=== PATIENT | female | born 1945 | race Caucasian/White ===

== ENCOUNTER → 2017-11-01 10:47 | Outpatient (CLI) | payer OTHER, SELFPAY ==
--- NOTE | 2017-11-01 | DI.MG.S_ITS ---
BILATERAL DIGITAL SCREENING MAMMOGRAM 3D/2D WITH CAD: 11/01/2017 CLINICAL: Routine screening. Comparison is made to exams dated: 07/27/2015 mammogram, 03/13/2013 mammogram, and 05/24/2010 mammogram - [facility]. The tissue of both breasts is heterogeneously dense. This may lower the sensitivity of mammography. Current study was also evaluated with a Computer Aided Detection (CAD) system. No significant masses, calcifications, or other findings are seen in either breast. There has been no significant interval change. IMPRESSION: NEGATIVE There is no mammographic evidence of malignancy. A 1 year screening mammogram is recommended. NOTE: For mammograms, a report in lay terms will be sent to the patient. Approximately 15% of breast malignancies will not be visualized mammographically. In the management of a palpable breast mass, a negative mammogram must not discourage biopsy of a clinically suspicious lesion. Electronically Signed By: Sherri moise/hiwot:11/01/2017 11:49:27 letter sent: Normal Exam ACR BI-RADS Category 1: Negative [id number]
== END ==
PROVIDERS: Visit Provider Family Medicine
DX: Z12.31 Encounter for screening mammogram for malignant neoplasm of breast (principal)
CPT/HCPCS: 77063; 77067

== ENCOUNTER → 2021-04-27 12:01 | Outpatient (CLI) | payer MEDICARE, BC, SELFPAY ==
--- NOTE | 2021-04-27 | DI.RAD.S_ITS ---
PROCEDURE: FL BARIUM SWALLOW W SPEECH INDICATIONS: Other dysphagia COMPARISON: None. TECHNIQUE: Examination was conducted in conjunction with speech pathology per standard protocol. In the lateral projection, filming was performed of the patient swallowing. AP projection filming may also be performed with patient swallowing. COMPARISON: FINDINGS: Function: The oral preparatory phase appears normal, with proper containment. The subsequent oral propulsive phase, pharyngeal phase, and esophageal phase of swallowing also appear normal with all proffered substances. No laryngotracheal penetration or aspiration. Mild bilateral vallecular pooling, left greater than right which was not always cleared with repeat swallows. There is delayed passage of 13 millimeter barium tab with tablet has obtaining at the right vallecula. With repeat swallows common was cleared from the right vallecula and readily passed to the stomach. Morphology: No cricopharyngeal bar is identified. No cervical esophageal webs. No Zenker's diverticulum. No strictures. IMPRESSION: 1. Mild bilateral vallecular pooling. 2. Delayed passage of barium tablet passed right vallecula. Tablet was passed with with repeat swallows. Dictated by: Dannielle Guillen MD, PhD on 04/27/2021 at 16:08 Approved by: Dannielle Guillen MD, PhD on 04/27/2021 at 16:10
--- NOTE | 2021-04-27 17:30 | ST.SWALLOW ---
Visit Care Team Role Provider Type FRANCISCA Amaya Family Provider Non-Staff Primary Care Provider Specialty: Family Practice Address: [address] [place] [address], [id number] Email: Patrick Blanco MD Attending Provider Physician Referring Provider Specialty: Ear, Nose, Throat Address: [address] [place] [address], [id number] Email: [email or web address] Modified Barium Swallow Study [email or web address] Modified Barium Swallow Study Start: 04/27/21 15:50 Freq: Status: Active Protocol: Document 04/27/21 15:50 TAMARA (Rec: 04/27/21 17:08 TAMARA [id number]) Modified Barium Swallow Study Total Time Visit Start Time 13:30 Visit Stop Time 14:10 Total Visit Minutes [address] Patrick Blanco Reason for Referral Dysphagia Setting Setting Outpatient Care Patient Information Identification Type Name,ID Card Patient History The pt is a 75-yr-old female with complains of choking and gagging with oral intake. This was happening with some frequency for a while until, around February, she experienced what appears to have been a laryngospasm (as identified by Dr. Blanco, per pt's report). The pt was at a deli in her community when she started to eat a salmon croquet and found that she could not breathe. Bystanders performed Heimlich with no results and called 911. While waiting for sample supervisor' arrival, the pt started coughing and the issue resolved without medical care. Since then, the pt has been more careful with swallowing, and choking, gagging and sticking sensation symptoms have reduced but not resolved. The pt did not identify any particular food or liquid but did state that pills are frequently difficult to swallow, as they stick in her throat. She reported increased hoarseness of voice when these episodes occur. Subjective Observations The pt arrived on time and provided case history. MBS procedure and goals were explained to her, and she was in agreement to proceed. Patient Positioning Position View Lat-A/P Imaging Lateral View Textures Administered Trials Presented Thin Liquid via Spoon,Thin Liquid via Cup,Springfield Liquid via Spoon,Springfield Liquid via Cup,Honey Liquid via Spoon, Dysphagia Blenderized Textures ,Regular Textures Oral Phase Source: MBSIMP (TM) (C) Bolus Specific Scoring Grid Lip Closure No Impairment (WNL) Tongue Control During Bolus Hold No Impairment (WNL) Bolus Prep/Mastication No Impairment (WNL) Bolus Transport/Lingual Motion No Impairment (WNL) A/P Lingual Propulsion Delay No Oral Residue Minimal Impairment Residue Clearing No Impairment (WNL) Nasal Regurgitation No Additional Oral Phase Observations Oral peripheral exam: Mild lingual deviation to left side . Mildly reduced labial strength allowed for leakage of air while shifting air from cheek to cheek. Otherwise features are symmetrical and WNL of strength, coordination, and ROM. Pt has natural dentition in adequate condition for age. Prominent torus mandibularis x2 were observed. Pharyngeal Phase Source: MBSIMP (TM) (C) Bolus Specific Scoring Grid Delayed Initiation of Pharyngeal Swallow Yes: Occ mild, during consec sips & with oral residue Soft Palate Elevation No Impairment (WNL) Tongue Base Strength/Range of Motion Mild Impairment Residue Along the Tongue Base Yes Clearance of Residue Along Tongue Base No Impairment (WNL) Laryngeal Elevation No Impairment (WNL) Anterior Hyoid Movement Moderate Impairment Epiglottic Range of Motion Mild Impairment Vallecular Residue Yes: Greater on left side Clearance of Vallecular Residue WFL Laryngeal Vestibular Closure No Impairment (WNL) Pharyngeal Stripping Wave Moderate Impairment Pharyngeal Contraction No Impairment (WNL) Posterior Pharyngeal Wall Residue No Upper Esophageal Sphincter Opening No Impairment (WNL) Residue in the Pyriform Sinuses Yes: Trace with paste and cookie Clearance of Residue in the Pyriform No Impairment (WNL) Sinuses Esophageal Clearance Upright Position No Impairment (WNL) Pharyngoesophageal Backflow Observed No Additional Pharyngeal Phase Observations No laryngeal penetration or tracheal aspiration was observed during the trial. At one point, the pt c/o sticking sensation at the base of her throat despite the pharynx being clear. Hyolaryngeal elevation was WNL, but minimal anterior movement was observed. This likely contributes to the inconsistent epiglottic inversion that was noted and resulted in moderate consistent vallecular residue, greater on left side than right. Residue cleared with liquid wash, sometimes requiring multiple swallows. A/P View Textures Administered Trials Presented [place] Liquid via Cup, Dysphagia Blenderized Textures ,Barium Tablet A/P View Observations Pharyngeal Contraction No Impairment (WNL) Vocal Fold Function Good Residue Observed Valleculae Left Esophageal Function No Impairment (WNL) Esophageal Clearance Upright Position No Impairment (WNL) Additional Observations A 13mm barium tablet lodged in the vallecula, requiring multiple swallows of water to clear. Once clear of the pharynx, it passed through the esophagus to stomach without delay. Clinical Impressions Dysphagia Type Mild Pharyngeal Dysphagia Findings The pt presents with mild pharyngeal dysphagia characterized by reduced base of tongue strength, reduced pharyngeal stripping wave, and minimal anterior movement of the hyolaryngeal complex that contributes to inconsistent epiglottic inversion. Moderate pooling in the valecula was noted, left side greater than right, and a 13 mm barium tablet also lodged in the vallecula. All residue, including tablet, cleared with subsequent swallows of water. The pt would benefit from dysphagia therapy targeting increasing laryngeal and pharyngeal muscular strength to correct these deficits and improve efficiency of swallow as well as patient safety and comfort. Also recommend treatment of laryngospasm, targeting strategies to reduce laryngeal tension to maintain open airway for breathing. The pt was briefly educated on initial MBS findings and instructed in relaxed breathing method to minimize laryngeal tension until she can be seen for more thorough evaluation and treatment. The pt was in agreement with recommendations and verbalized understanding of information and training provided. Rehabilitation Potential Good Patient Appropriate for Therapy Yes Recommendations Diet Liquids Order Thin Diet Order Regular Medication Recommendation Whole in Carrier Comments May benefit from splitting pills as able Aspiration Precautions Recommended Precautions Upright at 90 Degrees,Small Bites/Sips,Effortful Swallow, Double Swallow Additional Precautions May benefit from head turn to left side; will assess in treatment Treatment Plan Therapy Recommendations Outpatient Speech Therapy Short Term Goals Outpatient therapy to target safe swallow strategies and exercises to improve strength, coordination and ROM of swallow musculature to improve safety and comfort with oral intake. [facility] Goals The pt will tolerate regular textures and thin liquids without overt s/sx of aspiration and with comfort WNL.
== END ==
PROVIDERS: Family Provider Nurse Practitioner; PCP Nurse Practitioner; Referring Provider Otolaryngology; Visit Provider Otolaryngology
DX: R13.19 Other dysphagia (principal); R19.8 Other specified symptoms and signs involving the digestive system and abdomen
CPT/HCPCS: 74230; 92611

== ENCOUNTER 2021-08-24 13:30 | Outpatient (RCR) | payer MEDICARE, BC, SELFPAY ==
--- NOTE | 2021-08-10 15:37 | ST.OPIE ---
Visit Care Team Role Provider Type FRANCISCA Wooten Family Provider Non-Staff Primary Care Provider Specialty: Medical Address: [address] [place] [address], [id number] Email: Patrick Blanco MD Attending Provider Physician Referring Provider Specialty: Ear, Nose, Throat Address: [address] [place] [address], [address] Email: [email or web address] Speech-Language Pathology Initial Evaluation PODIATRY TEACHER Clinical Swallow Evaluation Start: 08/10/21 12:29 Freq: Status: Active Protocol: Document 08/10/21 18:11 TAMARA (Rec: 08/10/21 18:12 TAMARA [id number]) Clinical Swallow Evaluation Session Time Visit Start Time 12:30 Visit Stop Time 13:30 Total Visit Minutes 60 Visit Information Visit Number Initial Evaluation 05/16 Plan of Care Dates 08/10/21 - 11/03/21 Insurance Information Medicare Referral Referring Provider Dr. Patrick Blanco Reason for Referral Dysphagia Setting Assessment Location Outpatient Care Visit Type Note Type Initial evaluation Next Note Type Next Note Type Treatment Note Patient Information Identification Type Name,ID Card History The pt is a 75-yr-old female familiar to this Clinician from previous outpatient therapy with her family member. The pt also participated in MBS with this Clinician on . At that time, the pt had c/o choking with oral intake as well as symptoms of laryngospasm. MBSS revealed mild pharyngeal dysphagia characterized by reduced base of tongue strength, reduced pharyngeal stripping wave, and minimal anterior movement of the hyolaryngeal complex that contributed to inconsistent epiglottic inversion. Moderate vallecular pooling was noted. The pt was also provided basic education RE laryngospasm symptoms and taught a slow deep breathing technique to assist in management. Outpatient therapy was recommended. Subjective Observations The pt arrived on time and provided updated case history. She reported continued symptoms as above but with reduced frequency. She reported that increased attention to swallowing and the deep breathing technique have been helpful, although she has had one significant apparent laryngospasm that resulted from coughing on water while driving. She stated she was not paying attention to swallowing and was able to machine tack puller to the side of the road safely and implement breathing technique until symptoms passed. 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 She stated that she manages this stress primarily by taking naps. She has not been exercising as she used to d/t COVID-19 restrictions and winter weather, but hoped to get outside more as the weather improves. The pt also c/o vocal hoarseness particularly after coughing and after speaking at length. Reported by Patient Other Symptoms Choking,Coughing Comment Sensations of difficulty breathing d/t airway closure. This often happens after having swallowed wrong. Current Diet Regular,Thin liquids Baseline Feeding Method Independent in self-feeding Objective Assessment Mental Status Alert,Responsive,Cooperative Oral Integrity WFL Dentition Within normal limits Lip Function Within normal limits Observation of Lips at Rest Symmetrical Pucker Within normal limits Lip Retraction Within normal limits Alternating Pucker/Lip Retraction Within normal limits Tongue Function Within normal limits Observations of Tongue at Rest Within normal limits Tongue Protrusion Within normal limits Tongue Lateralization Within normal limits Jaw Function Within normal limits Observations of Jaw at Rest Within normal limits Jaw Opening Within normal limits Jaw Closing Within normal limits Jaw Lateralization Within normal limits Hard/Soft Palate Function Within normal limits Observations of Hard/Soft Palate Within normal limits Gag Reflex Within normal limits Nasality Within normal limits Phonation Within normal limits Respiratory Sufficiency Within normal limits Food and Liquid Trials Comment No oral trials were administered today. The pt perceived her voice as mildly hoarse during the session, although it was perceived to be WNL by this clinician. Education was provided with video review of MBS and continued education on general aspiration precautions, laryngospasm, and management of stress, including potential effects of COVID-19 isolation, that can contribute to laryngospasm and vocal hoarseness. Also educated RE potential effects of coughing and overuse of voice on vocal quality. The pt was receptive to all education. Further training in diaphragmatic breathing, including sabrina breathing, was provided, and the pt returned demonstration with mild difficulty reducing rate of breathing to meet a 3: 5-sec inhalation/exhalation pattern. Counseling and encouragement was provided RE impacts of living with a spouse who has had a stroke. PODIATRY TEACHER provided recommendations for self-care to reduce stress, including exercise, fresh air, meditation, participating in a hobby and scheduling time alone. Also recommended the pt may benefit from a Stroke Caregivers Support Group and mental health counseling. She was receptive to all information and in agreement with strategies. Discussed POC and agreed to target exercises to improve swallow function/safety, continue laryngospasm management, and assess and treat vocal quality as indicated. Findings Swallowing Function Pharyngeal phase dysphagia Severity of Swallow Impairment Mildly impaired Contributing Factors to Swallow Reduced alertness or attention Impairment ,Reduced laryngeal excursion, Impaired airway protection Prognosis Good Based on Cognitive status,Age,Duration of symptoms/severity Impact on Safety and Functioning Risk for aspiration Recommendations Instrumental Assessment No Swallowing Treatment Yes Frequency 1x/wk Duration for 3 wks; then taper to 1 visit every 2-3 wks for up to 4 mos Recommended Solids Regular Recommended Liquids Thin Safety Precautions/Swallowing Reduce distractions,Upright Recommendations position at least 30 minutes after meals,Small bites and sips when eating,Slow rate; swallow between bites Medication Recommendations As Tolerated Comments Incorporate breathing technique into daily routine 2 -4x/day Education Patient/Caregiver Education Described results of evaluation,Patient expressed understanding of evaluation, Patient expressed agreement with goals & treatment plans, Patient expressed understanding of safety precautions,Patient expressed understanding of feeding recommendations,Patient requires further education/ training Goals Short-term Goals 1. The pt will follow safe swallow strategies to reduce risk of aspiration. 2. The pt will perform exercises to improve strength, coordination and ROM of swallow musculature to reduce risk of aspiration and increase confidence with oral intake. 3. The pt will perform diaphragmatic breathing periodically throughout the day (5-10 breaths at a time) to increase laryngeal and overall relaxation to reduce frequency and duration of laryngospasm and improve vocal quality. 4. The pt will participate in ongoing evaluation of voice and swallow as indicated to guide POC. Long-term Goals 1. The pt will tolerate regular textures and thin liquids without overt s/sx of aspiration. 2. Using breathing techniques independently as needed, the pt will demonstrate ability to prevent and/or manage laryngospasms to reduce their frequency, duration, and intensity. 3. The pt will produce vocal quality consistently WNL.
--- NOTE | 2021-08-24 15:12 | ST.IPDYTX ---
Visit Care Team Role Provider Type FRANCISCA Wooten Family Provider Non-Staff Primary Care Provider Specialty: Medical Address: [address] [place] [address], [address] Email: Patrick Blanco MD Attending Provider Physician Referring Provider Specialty: Ear, Nose, Throat Address: [address] [place] [address], [address] Email: [email or web address] VISITOR SERVICE ASSISTANT Dysphagia Treatment VISITOR SERVICE ASSISTANT Dysphagia Treatment Start: 08/10/21 12:29 Freq: Status: Active Protocol: Document 08/24/21 15:01 TAMARA (Rec: 08/24/21 15:01 TAMARA [id number]) Dysphagia Treatment Session Time Visit Start Time 13:30 Visit Stop Time 14:15 Total Visit Minutes 45 Visit Information Visit Number 2 Plan of Care Dates 08/10/21 - 11/03/21 Insurance Information Medicare Setting Assessment Location Outpatient Care Visit Type Note Type Treatment Note Next Note Type Next Note Type Treatment Note Patient Information Subjective Observations The pt arrived on time. Reported diaphragmatic breathing has been helpful to manage stress. No episodes of laryngospasm since last visit. Pt continues with occ food/ pills sticking in throat. Small pills occ stick in oral cavity between mandible and cheek. Treatment Liquids Trialed Thin Administration Type Cup Single Sip,Cup Consecutive Sips Oral Strategies Upright at 90 degrees Pharyngeal Strategies Effortful Swallow Treatment Activities No overt s/sx of aspiration were observed with intake of thin liquid. Education provided RE normal swallow function and pt's swallow impairments seen via MBS. Animated video was used as visual aid. Trained pt in swallow exercises targeting buccal muscles, back and base of tongue, pharyngeal constrictors and superior laryngeal musculature. Instructions were provided orally with demonstration and in writing. Pt returned demonstration of all; all questions were answered. Next available appt to follow up is September 21. Assessment Patient Response to Treatment Good Rehab Potential Good Assessment of Improvement Pt is benefiting from breathing techniques. No episodes of laryngospasm since last visit. She was responsive to all education and training provided today and demonstrated understanding and appropriate form for exercises. Diet Recommendations Recommendations Continue Current Diet Liquids Order Thin Diet Order Regular Medication Recommendations As Tolerated Aspiration Precautions Recommended Precautions Upright at 90 Degrees,Small Bites/Sips,Effortful Swallow Treatment Plan Appropriate for Continued Therapy Yes Therapy Recommendations Continue POC Dysphagia Goals Short-Term Goals: 1. The pt will follow safe swallow strategies to reduce risk of aspiration. 2. The pt will perform exercises to improve strength, coordination and ROM of swallow musculature to reduce risk of aspiration and increase confidence with oral intake. 3. The pt will perform diaphragmatic breathing periodically throughout the day (5-10 breaths at a time) to increase laryngeal and overall relaxation to reduce frequency and duration of laryngospasm and improve vocal quality. 4. The pt will participate in ongoing evaluation of voice and swallow as indicated to guide POC. Long-Term Goals: 1. The pt will tolerate regular textures and thin liquids without overt s/sx of aspiration. 2. Using breathing techniques independently as needed, the pt will demonstrate ability to prevent and/or manage laryngospasms to reduce their frequency, duration, and intensity. 3. The pt will produce vocal quality consistently WNL. Follow Up Plan Follow up in 1 mo
--- NOTE | 2021-11-14 15:37 | ST.IPDYTX ---
Visit Care Team Role Provider Type FRANCISCA Wooten Family Provider Non-Staff Primary Care Provider Specialty: Medical Address: [address] [place] [address], [address] Email: Patrick Blanco MD Attending Provider Physician Referring Provider Specialty: Ear, Nose, Throat Address: [address] [place] [address], [address] Email: [email or web address] SCIENTIST Dysphagia Treatment IMAGE SCIENTIST Dysphagia Treatment Start: 08/10/21 12:29 Freq: Status: Active Protocol: Document 11/14/21 15:26 TAMARA (Rec: 11/14/21 15:37 TAMARA [id number]) Dysphagia Treatment Visit Information Insurance Information Medicare Setting Assessment Location Outpatient Care Visit Type Note Type Discharge Summary Patient Information Subjective Observations The pt was last seen August 24 and has not returned or communicated to continue pursuing therapy. She is discharged from services. Treatment Plan Dysphagia Goals Short-Term Goals: 1. The pt will follow safe swallow strategies to reduce risk of aspiration. 2. The pt will perform exercises to improve strength, coordination and ROM of swallow musculature to reduce risk of aspiration and increase confidence with oral intake. 3. The pt will perform diaphragmatic breathing periodically throughout the day (5-10 breaths at a time) to increase laryngeal and overall relaxation to reduce frequency and duration of laryngospasm and improve vocal quality. 4. The pt will participate in ongoing evaluation of voice and swallow as indicated to guide POC. Long-Term Goals: 1. The pt will tolerate regular textures and thin liquids without overt s/sx of aspiration. 2. Using breathing techniques independently as needed, the pt will demonstrate ability to prevent and/or manage laryngospasms to reduce their frequency, duration, and intensity. 3. The pt will produce vocal quality consistently WNL.
== END 2021-11-16 12:24 ==
LOC: SP 13:30
PROVIDERS: Family Provider Nurse Practitioner Family; PCP Nurse Practitioner Family; Referring Provider Otolaryngology; Visit Provider Otolaryngology
DX: R13.19 Other dysphagia (principal); R19.8 Other specified symptoms and signs involving the digestive system and abdomen
CPT/HCPCS: 92526; 92610